=== PATIENT | male | born 1930 | race Caucasian/White ===

== ENCOUNTER 2021-09-03 07:15 | Inpatient (IN) | payer OTHER ==
[2021-09-03] MEDS ORDERED: SODIUM CHLORIDE 1,000 ML IV ONE (07:58)
[2021-09-03 09:11] LABS: ALBUMIN 3.3 g/dl (3.4-5.0); CREATININE 1.1 mg/dl (0.55-1.3); TOT PROT 6.6 g/dl (6.4-8.2)
[2021-09-03 09:32] LABS: BASO % 0.3 % (0-2.0); EOS % 0.7 % (0-4.5); HEMATOCRIT 34.1 % (35.4-49); HEMOGLOBIN 11.5 GM/dL (11.7-16.9); LYMPH % 2.9 % (8-40); MCH 30.7 pg (25.7-33.7); MCHC 33.7 g/dl (32.0-35.9); MEAN CELL VOLUME 91.3 fl (80-96); MEAN PLT VOLUME 8.5 fl (7.5-11.1); MONO % 8.5 % (3.8-10.2); NEUT % 87.6 % (42.8-82.8); PLATELET COUNT 160 10^3/uL (134-434); RBC 3.73 M/mm3 (4.00-5.60); RDW 16.2 % (11.9-15.9); WHITE BLOOD COUNT 6.3 K/mm3 (4.0-10.0)
[2021-09-03 10:48] LABS: EPITHELIAL CELLS RARE /hpf
[2021-09-03] MEDS ORDERED: ASPIRIN 81 MG CHEWABLE TABLETS PO ONE (13:22)
[2021-09-03] MEDS: ATENOLOL 50 MG TABLET (FP) PO SCH (18:09)
[2021-09-03] MEDS: ENOXAPARIN NA (PORCINE) 40 MG/0.4 ML DISP.SYRIN SQ SCH (18:09)
[2021-09-03] MEDS: MEMANTINE HCL 5 MG TABLET (UD) PO SCH (23:44)
[2021-09-03] MEDS: MYCOPHENOLATE MOFETIL 500 MG TABLET PO SCH (23:44)
[2021-09-03] MEDS: ATORVASTATIN CA 40 MG TABLET (FP) PO SCH (23:44)
[2021-09-03 23:53] VITALS: BMI 29.2
[2021-09-04 07:18] LABS: EOS % 0.3 % (0-4.5); HEMOGLOBIN 11.5 GM/dL (11.7-16.9); LYMPH % 8.4 % (8-40); MCH 30.7 pg (25.7-33.7); MEAN CELL VOLUME 93.2 fl (80-96); MEAN PLT VOLUME 8.2 fl (7.5-11.1); MONO % 15.7 % (3.8-10.2); NEUT % 73.6 % (42.8-82.8); PLATELET COUNT 152 10^3/uL (134-434); RBC 3.75 M/mm3 (4.00-5.60); RDW 16.2 % (11.9-15.9); WHITE BLOOD COUNT 3.3 K/mm3 (4.0-10.0)
[2021-09-04 09:25] LABS: ALBUMIN 2.8 g/dl (3.4-5.0); BILIRUBIN,TOTAL 0.9 mg/dL (0.2-1); BLOOD UREA NITROGEN 20.9 mg/dL (7-18); CREATININE 1.1 mg/dL (0.55-1.3); TOT PROT 6.2 g/dl (6.4-8.2)
[2021-09-04 09:30] LABS: ACTIVATED PTT 39.4 SECONDS (25.2-36.5); INR 1.24 (0.83-1.09); PROTHROMBIN TIME (PATIENT) 14.3 SEC (9.7-13.0)
[2021-09-04] MEDS ORDERED: PNEUMOC 13-VAL CONJ-DIP CRM/PF 0.5 ML DISP.SYRIN IM ONE (10:00)
[2021-09-04] MEDS ORDERED: MEMANTINE HCL 14 MG PO SCH (10:00)
[2021-09-04] MEDS: DEXAMETHASONE SOD PHOSPHATE 4 MG/1 ML VIAL IVPUSH SCH (10:30)
[2021-09-04] MEDS: ASPIRIN 81 MG CHEWABLE TABLETS PO SCH (10:30)
[2021-09-04] MEDS: ENOXAPARIN NA (PORCINE) 40 MG/0.4 ML DISP.SYRIN SQ SCH (10:30)
[2021-09-04] MEDS: ATENOLOL 50 MG TABLET (FP) PO SCH (10:30)
[2021-09-04] MEDS: MYCOPHENOLATE MOFETIL 500 MG TABLET PO SCH ×2 (11:29→21:48)
[2021-09-04] MEDS: MEMANTINE HCL 5 MG TABLET (UD) PO SCH ×2 (11:29→21:48)
[2021-09-04] MEDS ORDERED: REMDESIVIR 200 MG in SODIUM CHLORIDE 250 ML IVPB ONE ×2 (11:53→13:00)
[2021-09-04] MEDS: ATORVASTATIN CA 40 MG TABLET (FP) PO SCH (21:48)
[2021-09-05] MEDS ORDERED: LORazepam 2 MG/ML SDV VIAL IVPUSH ONE (04:33)
[2021-09-05 07:16] LABS: BASO % 0.3 % (0-2.0); HEMATOCRIT 37.6 % (35.4-49); LYMPH % 7.7 % (8-40); MCH 29.6 pg (25.7-33.7); MEAN CELL VOLUME 92.6 fl (80-96); MEAN PLT VOLUME 8.5 fl (7.5-11.1); MONO % 10.2 % (3.8-10.2); NEUT % 81.8 % (42.8-82.8); PLATELET COUNT 174 10^3/uL (134-434); RBC 4.06 M/mm3 (4.00-5.60); RDW 15.8 % (11.9-15.9); WHITE BLOOD COUNT 2.8 K/mm3 (4.0-10.0)
[2021-09-05 07:22] LABS: CALCIUM 8.6 mg/dL (8.5-10.1)
[2021-09-05 07:23] LABS: ALBUMIN 2.8 g/dl (3.4-5.0); BLOOD UREA NITROGEN 29.7 mg/dL (7-18)
[2021-09-05 07:26] LABS: CREATININE 0.9 mg/dL (0.55-1.3)
[2021-09-05 07:27] LABS: BILIRUBIN,TOTAL 0.7 mg/dL (0.2-1)
[2021-09-05 07:28] LABS: TOT PROT 6.5 g/dl (6.4-8.2)
[2021-09-05] MEDS: MEMANTINE HCL 5 MG TABLET (UD) PO SCH ×2 (09:48→23:11)
[2021-09-05] MEDS: ASPIRIN 81 MG CHEWABLE TABLETS PO SCH (09:48)
[2021-09-05] MEDS: ATENOLOL 50 MG TABLET (FP) PO SCH (09:49)
[2021-09-05] MEDS: DEXAMETHASONE SOD PHOSPHATE 4 MG/1 ML VIAL IVPUSH SCH (09:49)
[2021-09-05] MEDS: ENOXAPARIN NA (PORCINE) 40 MG/0.4 ML DISP.SYRIN SQ SCH (09:49)
[2021-09-05] MEDS: MYCOPHENOLATE MOFETIL 500 MG TABLET PO SCH ×2 (09:49→23:11)
[2021-09-05] MEDS: amLODIPine BESYLATE 5 MG TABLET (FP) PO SCH (09:50)
[2021-09-05] MEDS: REMDESIVIR 100 MG in SODIUM CHLORIDE 250 ML IVPB SCH (13:15)
[2021-09-05] MEDS ORDERED: DEXAMETHASONE SOD PHOSPHATE 4 MG/1 ML VIAL IVPUSH SCH (14:39)
[2021-09-05] MEDS: ATORVASTATIN CA 40 MG TABLET (FP) PO SCH (23:11)
[2021-09-05] MEDS: QUEtiapine FUMARATE 25 MG TABLET PO SCH (23:11)
[2021-09-06 07:24] LABS: BASO % 0.1 % (0-2.0); HEMATOCRIT 39.5 % (35.4-49); HEMOGLOBIN 12.8 GM/dL (11.7-16.9); LYMPH % 5.6 % (8-40); MCHC 32.4 g/dl (32.0-35.9); MEAN CELL VOLUME 92.7 fl (80-96); MEAN PLT VOLUME 8.5 fl (7.5-11.1); MONO % 5.4 % (3.8-10.2); NEUT % 88.9 % (42.8-82.8); PLATELET COUNT 166 10^3/uL (134-434); RBC 4.26 M/mm3 (4.00-5.60); RDW 15.8 % (11.9-15.9); WHITE BLOOD COUNT 5.9 K/mm3 (4.0-10.0)
[2021-09-06 07:48] LABS: ALBUMIN 2.8 g/dl (3.4-5.0); BLOOD UREA NITROGEN 31.2 mg/dL (7-18); CALCIUM 8.5 mg/dL (8.5-10.1); MAGNESIUM 1.9 mg/dL (1.8-2.4)
[2021-09-06 07:53] LABS: BILIRUBIN,TOTAL 0.6 mg/dL (0.2-1); TOT PROT 6.4 g/dl (6.4-8.2)
[2021-09-06] MEDS: amLODIPine BESYLATE 5 MG TABLET (FP) PO SCH (10:03)
[2021-09-06] MEDS: ASPIRIN 81 MG CHEWABLE TABLETS PO SCH (10:03)
[2021-09-06] MEDS: ATENOLOL 50 MG TABLET (FP) PO SCH (10:03)
[2021-09-06] MEDS: MEMANTINE HCL 5 MG TABLET (UD) PO SCH ×2 (10:04→22:42)
[2021-09-06] MEDS: ENOXAPARIN NA (PORCINE) 40 MG/0.4 ML DISP.SYRIN SQ SCH (10:04)
[2021-09-06] MEDS: MYCOPHENOLATE MOFETIL 500 MG TABLET PO SCH ×2 (10:04→22:42)
[2021-09-06] MEDS: REMDESIVIR 100 MG in SODIUM CHLORIDE 250 ML IVPB SCH (12:50)
[2021-09-06] MEDS: DEXAMETHASONE SOD PHOSPHATE 4 MG/1 ML VIAL IVPUSH SCH (14:23)
[2021-09-06] MEDS: QUEtiapine FUMARATE 25 MG TABLET PO SCH (22:42)
[2021-09-06] MEDS: ATORVASTATIN CA 40 MG TABLET (FP) PO SCH (22:42)
[2021-09-07 07:31] LABS: BASO % 0.3 % (0-2.0); EOS % 0.1 % (0-4.5); HEMATOCRIT 40.8 % (35.4-49); HEMOGLOBIN 12.7 GM/dL (11.7-16.9); LYMPH % 5.9 % (8-40); MCH 29.2 pg (25.7-33.7); MCHC 31.2 g/dl (32.0-35.9); MEAN CELL VOLUME 93.5 fl (80-96); MEAN PLT VOLUME 8.8 fl (7.5-11.1); MONO % 7.2 % (3.8-10.2); NEUT % 86.5 % (42.8-82.8); PLATELET COUNT 187 10^3/uL (134-434); RBC 4.36 M/mm3 (4.00-5.60); WHITE BLOOD COUNT 6.3 K/mm3 (4.0-10.0)
[2021-09-07 07:49] LABS: BLOOD UREA NITROGEN 38.4 mg/dL (7-18); CALCIUM 8.6 mg/dL (8.5-10.1)
[2021-09-07 07:50] LABS: ALBUMIN 2.9 g/dl (3.4-5.0)
[2021-09-07 07:51] LABS: CREATININE 1.1 mg/dL (0.55-1.3)
[2021-09-07 07:52] LABS: TOT PROT 6.5 g/dl (6.4-8.2)
[2021-09-07 07:53] LABS: BILIRUBIN,TOTAL 0.6 mg/dL (0.2-1)
[2021-09-07] MEDS: ASPIRIN 81 MG CHEWABLE TABLETS PO SCH (10:38)
[2021-09-07] MEDS: ENOXAPARIN NA (PORCINE) 40 MG/0.4 ML DISP.SYRIN SQ SCH (10:39)
[2021-09-07] MEDS: DEXAMETHASONE SOD PHOSPHATE 4 MG/1 ML VIAL IVPUSH SCH (10:39)
[2021-09-07] MEDS: MYCOPHENOLATE MOFETIL 500 MG TABLET PO SCH (10:39)
[2021-09-07] MEDS: MEMANTINE HCL 5 MG TABLET (UD) PO SCH (10:39)
[2021-09-07] MEDS: ATENOLOL 50 MG TABLET (FP) PO SCH (10:42)
[2021-09-07] MEDS: amLODIPine BESYLATE 10 MG TABLET (FP) PO SCH (10:42)
[2021-09-07] MEDS ORDERED: QUEtiapine FUMARATE 25 MG TABLET PO SCH (22:00)
[2021-09-07] MEDS ORDERED: ATORVASTATIN CA 40 MG TABLET (FP) PO SCH (22:00)
[2021-09-08] MEDS: MEMANTINE HCL 5 MG TABLET (UD) PO SCH ×2 (00:09→10:04)
[2021-09-08] MEDS: MYCOPHENOLATE MOFETIL 500 MG TABLET PO SCH ×2 (00:09→10:05)
[2021-09-08] MEDS ORDERED: ATENOLOL 50 MG TABLET (FP) PO SCH (10:00)
[2021-09-08] MEDS ORDERED: ENOXAPARIN NA (PORCINE) 40 MG/0.4 ML DISP.SYRIN SQ SCH (10:00)
[2021-09-08] MEDS ORDERED: DEXAMETHASONE SOD PHOSPHATE 4 MG/1 ML VIAL IVPUSH SCH (10:00)
[2021-09-08] MEDS ORDERED: ASPIRIN 81 MG CHEWABLE TABLETS PO SCH (10:00)
[2021-09-08] MEDS: amLODIPine BESYLATE 10 MG TABLET (FP) PO SCH (10:04)
[2021-09-08 18:15] VITALS: BP 145/87; PULSE 85; TEMP 98
[2021-09-09 10:08] LABS: SARS-CoV-2 NAA Detected (Not Detected)
== END 2021-09-08 18:54 | disposition home or self-care (01) | DRG 177 ==
LOC: FER 07:15 → J2W 23:05 → J8W 09-07 13:55
PROVIDERS: ADMIT Internal Medicine; ATTEND Nurse Practitioner Family
PROC: XW033E5 Introduction of Remdesivir Anti-infective into Peripheral Vein, Percutaneous Approach, New Technology Group 5 (ICD-10-PCS; principal; 2021-09-04)
PROC: 3E0333Z Introduction of Anti-inflammatory into Peripheral Vein, Percutaneous Approach (ICD-10-PCS; 2021-09-04)
DX: U07.1 COVID-19 (principal); J12.82 Pneumonia due to coronavirus disease 2019; G93.41 Metabolic encephalopathy; I21.A1 Myocardial infarction type 2; J96.00 Acute respiratory failure, unspecified whether with hypoxia or hypercapnia; I10 Essential (primary) hypertension; E78.5 Hyperlipidemia, unspecified; I48.91 Unspecified atrial fibrillation; R79.89 Other specified abnormal findings of blood chemistry; R74.01 Elevation of levels of liver transaminase levels; F03.90 Unspecified dementia, unspecified severity, without behavioral disturbance, psychotic disturbance, mood disturbance, and anxiety; Z85.72 Personal history of non-Hodgkin lymphomas
CPT/HCPCS: 36415; 71045-TC-FY; 80053; 81003; 81015; 82550; 82553; 82728; 82962; 83615; 83735; 84484; 85025; 85379; 85610; 85730; 86140; 87040; 93005; 93306-TC; 97116-GP; 97161-GP; 99285-25; C9399; C9803; J7517; U0003; U0005

== ENCOUNTER 2021-12-07 22:24 | Inpatient (IN) | payer OTHER, BC ==
[2021-12-07] MEDS ORDERED: PANTOPRAZOLE SODIUM 40 MG VIAL ONE (23:01)
[2021-12-07] MEDS: PANTOPRAZOLE SODIUM 40 MG VIAL IVPUSH ONE ×2 (23:05→23:07)
[2021-12-07 23:08] LABS: HEMATOCRIT 32.8 % (35.4-49); HEMOGLOBIN 10.9 G/dL (11.7-16.9); MCH 30.8 pg (25.7-33.7); MCHC 33.2 g/dl (32.0-35.9); MEAN CELL VOLUME 92.9 fl (80-96); MEAN PLT VOLUME 7.7 fl (7.5-11.1); PLATELET COUNT 217.8 10^3/uL (134-434); RBC 3.53 10^6/uL (4.00-5.60); RDW 15.8 % (11.9-15.9); WHITE BLOOD COUNT 8.6 10^3/uL (4.0-10.8)
[2021-12-07 23:17] LABS: INR 1.21 (0.83-1.09); PROTHROMBIN TIME (PATIENT) 13.9 SEC (9.7-13.0)
[2021-12-07 23:24] LABS: ALBUMIN 3.1 g/dl (3.4-5.0); BILIRUBIN,TOTAL 0.9 mg/dl (0.2-1); CALCIUM 8.9 mg/dl (8.5-10); CREATININE 1.3 mg/dl (0.55-1.3); TOT PROT 6.6 g/dl (6.4-8.2)
[2021-12-07 23:26] LABS: PLATELET ESTIMATE ADEQUATE
[2021-12-08] MEDS ORDERED: ACETAMINOPHEN 325 MG TABLET (FP) PO PRN (00:22)
[2021-12-08 02:04] VITALS: BMI 29.4
[2021-12-08] MEDS: ATENOLOL 50 MG TABLET (FP) PO SCH (09:54)
[2021-12-08] MEDS: amLODIPine BESYLATE 5 MG TABLET (FP) PO SCH (09:54)
[2021-12-08] MEDS: MYCOPHENOLATE MOFETIL 500 MG TABLET PO SCH ×2 (09:54→21:53)
[2021-12-08] MEDS ORDERED: MEMANTINE HCL 14 MG PO SCH (10:45)
[2021-12-08 14:33] LABS: AMORP PHOS 1+ /hpf (NONE SEEN); EPITHELIAL CELLS FEW /hpf
[2021-12-08] MEDS ORDERED: DEXTROSE 5%-WATER - 50 ML IVPB ONE (16:37)
[2021-12-08] MEDS ORDERED: cefTRIAXone SODIUM 1 GM VIAL ONE (16:37)
[2021-12-08] MEDS: CEFTRIAXONE 1 GM in DEXTROSE 5%-WATER - 50 ML IVPB SCH (16:39)
[2021-12-08] MEDS: MEMANTINE HCL 5 MG TABLET (UD) PO SCH (21:44)
[2021-12-08] MEDS: ATORVASTATIN CA 40 MG TABLET (FP) PO SCH (21:53)
[2021-12-09 08:34] LABS: ALBUMIN 2.9 g/dl (3.4-5.0); BILIRUBIN,TOTAL 0.9 mg/dl (0.2-1); CALCIUM 8.7 mg/dl (8.5-10); CREATININE 1.2 mg/dl (0.55-1.3); MAGNESIUM 1.8 mg/dL (1.8-2.4); TOT PROT 6.2 g/dl (6.4-8.2)
[2021-12-09 08:42] LABS: HEMATOCRIT 31.8 % (35.4-49); HEMOGLOBIN 10.4 G/dL (11.7-16.9); MCH 30.4 pg (25.7-33.7); MCHC 32.8 g/dl (32.0-35.9); MEAN CELL VOLUME 92.6 fl (80-96); MEAN PLT VOLUME 8.1 fl (7.5-11.1); RBC 3.43 10^6/uL (4.00-5.60); RDW 15.7 % (11.9-15.9); WHITE BLOOD COUNT 7.7 10^3/uL (4.0-10.8)
[2021-12-09] MEDS ORDERED: DEXTROSE 5%-WATER - 50 ML IVPB ONE (09:43)
[2021-12-09] MEDS ORDERED: cefTRIAXone SODIUM 1 GM VIAL ONE (09:43)
[2021-12-09] MEDS: MEMANTINE HCL 5 MG TABLET (UD) PO SCH ×2 (09:51→21:52)
[2021-12-09] MEDS: ATENOLOL 50 MG TABLET (FP) PO SCH (09:52)
[2021-12-09] MEDS: amLODIPine BESYLATE 5 MG TABLET (FP) PO SCH (09:52)
[2021-12-09] MEDS: MYCOPHENOLATE MOFETIL 500 MG TABLET PO SCH ×2 (09:52→21:52)
[2021-12-09] MEDS: CEFTRIAXONE 1 GM in DEXTROSE 5%-WATER - 50 ML IVPB SCH (09:53)
[2021-12-09] MEDS: ATORVASTATIN CA 40 MG TABLET (FP) PO SCH (21:52)
[2021-12-10 05:25] VITALS: BP 151/64; PULSE 69; TEMP 97.4
[2021-12-10 08:16] LABS: ALBUMIN 2.7 g/dl (3.4-5.0); BILIRUBIN,TOTAL 0.8 mg/dl (0.2-1); CALCIUM 8.6 mg/dl (8.5-10); CREATININE 1.1 mg/dl (0.55-1.3); MAGNESIUM 1.8 mg/dL (1.8-2.4); TOT PROT 5.8 g/dl (6.4-8.2)
[2021-12-10 08:22] LABS: HEMATOCRIT 31.7 % (35.4-49); HEMOGLOBIN 10.5 G/dL (11.7-16.9); MCH 30.5 pg (25.7-33.7); MCHC 33.2 g/dl (32.0-35.9); MEAN PLT VOLUME 8.1 fl (7.5-11.1); PLATELET COUNT 251.6 10^3/uL (134-434); RBC 3.45 10^6/uL (4.00-5.60); RDW 15.3 % (11.9-15.9); WHITE BLOOD COUNT 8.2 10^3/uL (4.0-10.8)
[2021-12-10] MEDS ORDERED: DEXTROSE 5%-WATER - 50 ML IVPB ONE (09:00)
[2021-12-10] MEDS ORDERED: cefTRIAXone SODIUM 1 GM VIAL ONE (09:00)
[2021-12-10] MEDS: MYCOPHENOLATE MOFETIL 500 MG TABLET PO SCH (09:53)
[2021-12-10] MEDS: MEMANTINE HCL 5 MG TABLET (UD) PO SCH (09:53)
[2021-12-10] MEDS: CEFTRIAXONE 1 GM in DEXTROSE 5%-WATER - 50 ML IVPB SCH (09:54)
[2021-12-10] MEDS: amLODIPine BESYLATE 5 MG TABLET (FP) PO SCH (09:54)
[2021-12-10] MEDS: ATENOLOL 50 MG TABLET (FP) PO SCH (09:54)
== END 2021-12-10 13:21 | disposition home or self-care (01) | DRG 694 ==
LOC: FER 22:24 → FM/S 22:49 → UNDOADMIN 12-08 01:22 → FM/S 12-08 01:22
PROVIDERS: ADMIT Hospitalist; ATTEND Nurse Practitioner Acute Care
DX: N13.30 Unspecified hydronephrosis (principal); C85.90 Non-Hodgkin lymphoma, unspecified, unspecified site; D49.59 Neoplasm of unspecified behavior of other genitourinary organ; R31.9 Hematuria, unspecified; I48.91 Unspecified atrial fibrillation; I10 Essential (primary) hypertension; E78.5 Hyperlipidemia, unspecified
CPT/HCPCS: 0241U-QW; 36415; 74176-TC; 80048; 80053; 81003; 81015; 83605; 83735; 85025; 85027; 85610; 85730; 86850; 86900; 86901; 87040; 87086; 93005; 97116-GP; 97161-GP; 99285-25; J7517